=== PATIENT | female | born 1995 | race Caucasian/White ===

== ENCOUNTER 2022-03-22 15:29 | Emergency (ER) | payer OTHER, SELFPAY ==
[2022-03-22 15:36] VITALS: BP 135/90; PULSE 98; RESP 18; TEMP 36.2; O2SAT 98
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
== END 2022-03-22 16:06 | disposition home or self-care (01) ==
PROVIDERS: Emergency Provider Physician Assistant; PCP Family Medicine
DX: S80.212A Abrasion, left knee, initial encounter (principal); V49.49XA Driver injured in collision with other motor vehicles in traffic accident, initial encounter
CPT/HCPCS: 81025; 99282; 99283